=== PATIENT | female | born 1935 | race Caucasian/White ===

== ENCOUNTER → 2017-06-04 06:38 | Day surgery (SDC) | payer MEDICARE ==
[~2017-06-04 06:38] MED LIST: Atropine SYRINGE* 0.1 MG/ML 10 ML SYRINGE (1 MG) ONE; Diltiazem CD CAP* 240 MG PO SCH; Heparin 2 UNITS/ML IVPREMIX* 2,000 ML IV ONE; Heparin(*) 1000 UNIT/ML 10 ML VIAL CATH LAB IV ONE; Iodixanol* (CONTRAST) 320 MG/ML 100 ML SDV ONE; Iohexol 350 (CONTRAST) 200 ML MDV IV ONE; LORazepam TAB(*) 1 MG ONE; Lidocaine 1% INJ* 10 MG/ML 30 ML SDV ONE; Midazolam* 1 MG/ML 5 ML VIAL (5 MG) ONE; NS 0.9% 1000 ML* 1,000 ML IV SCH; Ondansetron INJ* 2 MG/ML VIAL ONE; fentaNYL* 50 MCG/ML 2 ML VIAL (100 MCG VIAL) ONE; hydrALAZINE IV* 20 MG/ML VIAL IV SLOW PU ONE; hydrALAZINE IV* 20 MG/ML VIAL ONE; nitroGLYCERIN DRIP* 0 MCG/0 ML BTL ONE; nitroGLYCERIN DRIP* 25,000 MCG/250 ML BTL ONE
--- NOTE | 2017-06-04 12:46 | RAD ---
CPT II Codes: 6045F Procedure(s) performed: 1. Diagnostic left lower extremity arteriogram. 2. Revascularization of occluded left superficial femoral artery. 3. Atherectomy of left superficial femoral artery. 4. Balloon angioplasty of left superficial femoral artery. Date of service: 06/04/17 Indication for procedure: Left leg claudication pain. Comparison: CTA aortogram with runoff dated April 27, 2017 and KANE dated January 06, 2017 Contrast: 50 mL Visipaque 320 Fluoroscopy Time: 14.6 minutes Vessels Accessed: Percutaneous access was obtained with ultrasound guidance in the left common femoral artery in the antegrade direction towards the foot. Catheter arteriography, with the catheter tip located within the lumen of the following arteries, was performed at the left common femoral artery, left superficial femoral artery and left popliteal artery. Anesthesia: Conscious sedation with IV Fentanyl and Versed as well as local 1% lidocaine injected locally at the arteriotomy site. Conscious sedation time: Timeout: 0915 hours Case end: 1044 hours Total conscious sedation time: 1 hour and 29 minutes Additional medications: * 200 mcg IA nitroglycerin injected intermittently throughout the course of the procedure to alleviate arterial spasm. * IV heparin 7000 Units to achieve a goal ACT of 250-300. * The patient received 1 mg of p.o. Ativan prior to the onset of the procedure. PROCEDURE NOTE AND INTRAPROCEDURAL IMAGING FINDINGS: Immediately prior to the procedure the patient signed consent after thoroughly discussing all risks, benefits and alternative therapies. The patient was positioned on the fluoroscopy table in the supine position and the bilateral groins were shaved, prepped and the patient was draped in standard sterile fashion. The left ankle was prepped and draped as well for possible retrograde pedal access. Using fluoroscopic imaging the location of the left common femoral head was marked externally with a skin marker on the patient's groin. Utilizing sonographic guidance and palpation, the left common femoral artery was cannulated overlying the femoral head with an 21-gauge needle. An ultrasound image was saved. A microwire was slowly advanced into the superficial femoral artery under fluoroscopic imaging. With the wire securing percutaneous arterial access, the needle was removed and a 5-Nicaraguan sheath was advanced under fluoroscopic control into the common femoral artery antegrade into the proximal superficial femoral artery securing access. Despite having a prior CTA, arteriography of the left lower extremity was necessary to more precisely locate the occlusion and to guide revascularization endeavors. The microwire and inner stylette were removed for the purpose of contrast injection. An arteriogram was performed through the access sheath demonstrating adequate left common femoral arteriotomy close to but above the bifurcation of the superficial femoral artery and femoral profundus. Patency was demonstrated in the proximal femoral profundus and proximal half of the superficial femoral artery. A 0.035 inch Bentson wire was advanced to the mid-level left superficial femoral artery. Over the Bentson wire the 5-Nicaraguan sheath was exchanged for a 7-[place]icarag[place] SideArm access sheath under fluoroscopic control. Arteriography of the lower thigh and proximal lower leg was performed through the side arm of the access sheath demonstrating a focal occlusion in the distal left superficial femoral artery measuring just under 10 cm in length. The distal popliteal artery fills by reconstituted flow. Utilizing a 0.035 inch Terumo Glidewire and a 4-Nicaraguan curved catheter the occluded portion of the superficial femoral artery was revascularize with the wire. With the wire located in the popliteal artery the catheter was advanced until the tip was in the left popliteal artery. The wire was removed and arteriography was performed from the distal popliteal artery confirming true lumen access and demonstrating patency of the popliteal artery and tibioperoneal trunk including imaging of the proximal anterior tibial artery. Arteriography of the lower left leg and foot was obtained showing scattered foci of stenosis in the anterior tibial artery but in-line flow is seen into the dorsalis pedis artery causing retrograde filling of the pedal loop. The posterior tibial artery is essentially occluded with no significant reconstituted collateral filling. The peroneal artery is extremely diminutive. Attention was returned to the occluded left superficial femoral artery. A second arteriogram was acquired confirming long segment occlusion of the left distal superficial femoral artery, though it was somewhat improved after advancing a 4-Nicaraguan catheter. Through the catheter a 0.018" [place] microwire was advanced into the mid-level anterior tibial artery securing access across the occlusion. Over the wire fluoroscopically guided atherectomy was performed with a 2.4 mm [place] atherectomy system. Postatherectomy arteriogram through the side arm of the access sheath demonstrated further improved patency in the previously occluded SFA. The atherectomy system was removed and direct catheter the microwire was replaced with a 0.035 inch Bentson wire. Over the Bentson wire a 5 mm x 120 mm paclitaxel coated InPact balloon was advanced spanning the previously occluded length of superficial femoral artery as well as the upper half of the popliteal artery and balloon angioplasty was performed. Over the course of 3 minutes the balloon was inflated up to burst pressure yielding an approximate diameter of 5.3 mm. The balloon remained inflated for total of 3 minutes to ensure paclitaxel delivery to the endothelium. The same balloon was drawn back slightly and the mid-level superficial femoral artery was then angioplastied for 2 additional minutes to ensure adequate inflow into the revascularize distal superficial femoral artery. Through the side arm of the access sheath arteriography of the left common femoral artery demonstrated an appropriate puncture of the common femoral artery above the bifurcation and below the inferior epigastric artery. However, the left common femoral artery appeared a diminutive with the 7-Nicaraguan sheath filling greater than 50% the lumen diameter of the artery. Because of the small size of the access artery it was decided that a closure device could not be safely deployed. The 7-Nicaraguan sheath was secured to the skin and the patient left the angiography suite where the sheath in place to allow for ACT to trend downward for planned sheath removal in the holding area. The patient tolerated the procedure well and was transferred to angiography holding bay for standard post procedural observation. SUMMARY OF PROCEDURE, IMAGING FINDINGS AND INTERVENTIONS PERFORMED: 1. Diagnostic studies performed: * Arterial access was obtained at the left common femoral artery in the antegrade direction (i.e. towards the foot) with ultrasound guidance. A sonographic image was recorded. * Diagnostic catheter angiography (necessary to perform the appropriate interventions) was performed with the catheter tip in the left common femoral artery, left superficial femoral artery and left popliteal artery. * Catheter arteriography was performed of the entire left lower extremity from the distal left external iliac artery through to the pedal branches of the left foot. * At the conclusion of the procedure arteriography was performed through the side arm of the access sheath to image the distal left external iliac artery, left common femoral artery and proximal superficial femoral artery and femoral profundus. 2. Interpretation of diagnostic studies performed: * There was an approximately 10 cm length occlusion of the distal left superficial femoral artery extending to the junction with the left popliteal artery. * There is essentially single-vessel runoff provided by the left anterior tibial artery to the foot exhibiting multiple foci of stenosis but not ammon occlusion. * Arteriography performed for the purpose of deploying a percutaneous arterial closure device demonstrates adequately patent left external iliac artery, common femoral artery and proximal superficial femoral artery and femoral profundus. * The left common femoral artery was deemed too narrow for safe percutaneous closure device deployment and therefore the patient left the angiography suite with the 7-Nicaraguan sheath in place to allow for the ACT to trended downward prior to bedside sheath removal. 3. Surgical interventions performed: * Revascularization of the occluded left superficial femoral artery. * Atherectomy of the left superficial femoral artery with a 2.4 mm [place] atherectomy device. * Balloon angioplasty of the left superficial femoral and popliteal arteries with a 5 mm x 120 mm paclitaxel coated HoozOn InPact balloon. 4. Interpretation of interventions performed: * Final arteriography demonstrated widely patent] flow through the previously occluded left superficial femoral and popliteal arteries. * Intervention of the single vessel runoff left anterior tibial artery was deferred to avoid causing any complications in the infrapopliteal artery providing direct flow to the foot. Plan: 1. Aspirin 81 mg p.o. daily for life. 2. Plavix 75 mg p.o. daily x 6 months. 3. Clinical and imaging follow-up according to standard Interventional Radiology protocol.
--- NOTE | 2017-06-04 17:03 | PN ---
Progress Note - Progress Note Date of Service: 06/04/17 SOAP: Subjective: Recent emesis. Patient feels well now. No pain complaints. Denies chest pain. Denies SOB. Objective: Selected Entries 06/04/17 16:45 Pulse Rate 63 Heart Rate 74 Respiratory 21 Rate Blood Pressure 168/67 (mmHg) Blood Pressure 93 Mean O2 Sat by Pulse 98 Oximetry NAD, AAO x 3 RRR, S1/S2 CTAB Abdomen feels soft, nontender Left CF arteriotomy site is soft, nontender Small (~1 cm diameter) dark brown blood on dressing, otherwise dry 1+ left MANAGER PERIOPERATIVE and pop pulses 2+ left DPA Left foot feels warm Left lower leg and foot are neuromuscular grossly intact Assessment: 82 YOF status post revascularization, atherectomy and angioplasty of occluded distal left SFA from an ipsilateral left MANAGER PERIOPERATIVE access. MANAGER PERIOPERATIVE diameter was too small for safe percutaneous closure deployment. Sheath pulling delayed by hypertension. Sheath pulled at 1523 and direct manual pressure held x 30 minutes. Plan: 1. 6 hours bedrest, left leg straight until 2123 hours. 2. Left groin, pulse and vitals check per protocol. 3. Plavix 75 mg po daily x 6 months. 4. ASA 81 mg po daily for life. 5. Routine Interventional Radiology follow up will include RN follow up call 06/07/17 and one month KANE & clinic follow up.
[2017-06-04 21:11] VITALS: BP 152/65
== END | disposition home or self-care (01) ==
LOC: CHICATH 06:38
PROVIDERS: ATTEND Radiology Diagnostic Radiology
DX: I70.222 Atherosclerosis of native arteries of extremities with rest pain, left leg (principal); I77.1 Stricture of artery; Z95.1 Presence of aortocoronary bypass graft; Z95.5 Presence of coronary angioplasty implant and graft
CPT/HCPCS: 76937; 99156; 99157; A9270-GY; C1724; C1725; C1769; C1887; C1894; J0360; J0461; J1644; J2250; J2405; J3010

== ENCOUNTER 2018-09-08 09:26 | Observation (INO) | payer MEDICARE ==
[2018-09-08] MEDS ORDERED: Diltiazem XR EXTEND Releas(NF) 240 MG CAP PO ONE (10:22)
--- NOTE | 2018-09-08 10:36 | ED ---
Complex/Multi-Sys Presentation - HPI Summary HPI Summary: Pt is a 83 y/o F presenting to the ED with a chief complaint of headache and palpitations. Pt was noted with very high BP in the ED. Per Tatum RN and daughter in the ED, the pt reported chest pressure onset yesterday accompanied by a weird sensation in her L arm. Pt also complained of left jaw pain yesterday. She has a L eye droop that is baseline as per the pts daughter, but no other neurological deficits. Per Tatum ROGERS and daughter, pt denies sob or fever. She has a hx of CABG in 2014 with one stent following, and two MIs. Pts daughter Peyton is present with the patient. Per Peyton, the pt lives with her and has been confused intermittently for the last few years, much worse today. The pt called Peyton last night and told her she wasnt feeling great. The patient went to her doctor yesterday and during her physical stated that she had pressure in her chest, felt like she had gas, and pain in the L side of her head for the last few weeks.Pt refused an EKG in her doctor's office, per the daughter. The pt just informed her daughter today of the chest pain and her L arm aching. Daughter lives near her mother and checks on her daily. Per pt, she reports cough and headache on her L frontal head. She states all of her symptoms are intermittent. She denies fever, med changes, or hx of pneumonia , respiratory issues, or CVA. She also reports her cardiac bypass was done in [place], but her stent was done in [place]. Vital signs while in room: HR 59 bpm, BP 205/72. Second BP is 208/116. Home Medications-not taken by pt this am. Bottles brought in by pt for confirmation of meds. - History Of Current Complaint Chief Complaint: EDHypertension Time Seen by Provider: 09/08/18 10:06 Hx Obtained From: Patient, Family/[employer] - daughterPeyton Onset/Duration: Gradual Onset, Lasting Days, Still Present Timing: Constant, Days Severity Currently: Moderate Severity Initially: Moderate Location: Pain At: - L frontal head, intermittently left chest, left jaw, left arm Character: Pressure, Typical Headache Aggravating Factor(s): none Alleviating Factor(s): none Associated Signs And Symptoms: Positive: Confusion, Headache, Cough, Chest Pain , Other - L arm aching. Negative: Fever - Allergies/Home Medications Allergies/Adverse Reactions: Allergies Allergy/AdvReac Type Severity Reaction Status Date / Time Sgbddld-Tmo-Zbf Reductase Allergy Joint Pain Verified 09/08/18 09:33 Inhibitor Home Medications: Home Medications Aspirin EC TAB* [Ecotrin EC Low Dose 81 MG*] 81 mg PO DAILY 09/08/18 [History Confirmed 09/08/18] Cholecalciferol (Vitamin D3) [Vitamin D3] 2,000 unit PO DAILY 09/08/18 [History Confirmed 09/08/18] Ezetimibe TAB* [Zetia TAB*] 5 mg PO DAILY 09/08/18 [History Confirmed 09/08/18] Losartan TAB* [Cozaar TAB*] 100 mg PO DAILY 09/08/18 [History Confirmed 09/08/18 ] Multivit-Min/Folic Acid/Biotin [Women Multivit W-Biotin Gummy] 1 tab.chew PO DAILY 09/08/18 [History Confirmed 09/08/18] Nutraview 1 cap PO DAILY 09/08/18 [History Confirmed 09/08/18] Replenex 1 tab PO TID 09/08/18 [History Confirmed 09/08/18] Ubidecarenone/Vitamin E [Co Q-10 50 mg Softgel] 2 cap PO DAILY 09/08/18 [ History Confirmed 09/08/18] dilTIAZem HCl [Cartia Xt] 240 mg PO DAILY 09/08/18 [History Confirmed 09/08/18] metFORMIN* [Glucophage 500 MG TAB *] 500 mg PO DAILY 09/08/18 [History Confirmed 09/08/18] PMH/Surg Hx/FS Hx/Imm Hx Previously Healthy: No Endocrine/Hematology History: Reports: Hx Diabetes Cardiovascular History: Reports: Hx Coronary Artery Disease, Hx Hypertension, Hx Myocardial Infarction - PA x 2, CABG and one stent placed after CABG, Other Cardiovascular Problems/Disorders - CABG in 2014 History: Reports: Hx Renal Disease - abnormal gfr Denies: Hx Dialysis Sensory History: Reports: Hx Contacts or Glasses Opthamlomology History: Reports: Hx Contacts or Glasses - Cancer History Hx Chemotherapy: No Hx Radiation Therapy: No - Surgical History Surgery Procedure, Year, and Place: CABG. . appendectomy. tubal ligation - Immunization History Date of Tetanus Vaccine: unknown Infectious Disease History: No Infectious Disease History: Denies: Traveled Outside the [place] in Last 30 Days - Family History Known Family History: Positive: Cardiac Disease, Hypertension - Social History Lives: With Family - Alcohol Use: None Hx Substance Use: No Substance Use Type: Reports: None Hx Tobacco Use: No Smoking Status (MU): Never Smoked Tobacco Have You Smoked in the Last Year: No Review of Systems Constitutional: Negative Positive: Other - jaw pain Positive: Chest Pain Positive: Cough Gastrointestinal: Negative Positive: no symptoms reported Positive: Other - L arm "weird sensation", aching Skin: Negative Positive: Headache Psychological: Normal All Other Systems Reviewed And Are Negative: Yes Physical Exam - Summary Physical Exam Summary: Appearance: Ill-appearing, moderate pain distress, well-nourished, hypertensive Skin: Warm, color reflects adequate perfusion, dry Head: Normal Head/Face inspection, atraumatic Eyes: Conjunctiva clear, PERRL EOMI, no nystagmus ENT: Normal inspection, jaw not painful to touch, not red or hot Neck: Supple, no nodes, no JVD Respiratory: Lungs clear, normal breath sounds, no respiratory distress Cardio: RRR, No murmur, pulses normal, brisk capillary refill Abdomen: Soft, nontender Bowel sounds: Present Musculoskeletal: Strength Intact/ROM intact, no calf tenderness, no edema. L arm not painful on palpation, full ROM, sensation intact, no deformity, distal pulses intact Psychological: Normal Neuro: Alert, indicated headache top of left side of head, muscle tone normal, no focal deficit GCS: 15 Triage Information Reviewed: Yes Vital Signs On Initial Exam: Initial Vitals Temp Pulse Resp BP Pulse Ox 97.7 F 56 19 206/84 96 09/08/18 09:29 09/08/18 09:29 09/08/18 09:29 09/08/18 09:29 09/08/18 09:29 Vital Signs Reviewed: Yes - [place] Coma Scale Best Eye Response: 4 - Spontaneous Best Motor Response: 6 - Obeys Commands Best Verbal Response: 5 - Oriented Coma Scale Total: 15 Diagnostics - Vital Signs Vital Signs Temp Pulse Resp BP Pulse Ox 09/08/18 09:50 53 12 205/72 99 09/08/18 09:48 22 09/08/18 09:29 97.7 F 56 19 206/84 96 - Laboratory Result Diagrams: 09/09/18 05:41 09/09/18 05:41 Lab Statement: Any lab studies that have been ordered have been reviewed, and results considered in the medical decision making process. - Radiology Chest x-ray Radiology Interpretation Completed By: Radiologist Summary of Radiographic Findings: 1. Mild subsegmental atelectasis at the LEFT lower lung zone. 2. No evidence for pulmonary edema. ED physician has reviewed this report. - CT Brain CT CT Interpretation Completed By: Radiologist Summary of CT Findings: 1. NO EVIDENCE FOR ACUTE INTRACRANIAL ABNORMALITY. 2. FINDINGS SUGGESTIVE OF A SMALL OLD INFARCT IN THE LEFT PARIETAL LOBE. ED physician has reviewed this report. - EKG 1022 Cardiac Rate: Bradycardia - 51bpm EKG Rhythm: Sinus Bradycardia ST Segment: Non-Specific Ectopy: None EKG Comparison: No Significant Change - from 06/18/15 Summary of EKG Findings: An EKG at 1022 reveals sinus bradycardia 51bpm, nml AV/ IV CT, nml QTc, and nml axis. No acute changes. 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 Re-Evaluation - Re-Evaluation 1st re-eval Re-Evaluation Time: 11:22 Change: Improved Comment: The pt has improved. She denies cp, GARCIA, arm pain, and jaw pain. BP is still 222/96. Was given her usual morning anti-hypertensives orally. Second Eval Re-Evaluation Time: 13:15 Change: Unchanged Comment: The pt's blood pressure is still 209/73 after hydralazine 10mg IV, Will give additional 10mg IV hydralazine. Pt still with GARCIA, no CP. Complex Multi-Symp Course/Dx Course Of Treatment: Pt is a 83 y/o F presenting to the ED with a chief complaint of headache,chest pain, palpitations, left arm pain, left jawpain, noted with very high BP at triage. Pts daughter Peyton is present with the patient. Per Peyton, the pt lives with her and has been confused intermittently for the last few years, much worse today. Per pt, she reports cough and headache on her L frontal head. She states all of her symptoms are intermittent. She denies fever, med changes, or hx of pneumonia, respiratory issues, or CVA. Pt is S/p PA x 2, CABG and one stent. Vital signs while in room : HR 59 bpm, BP 205/72. Second BP is 208/116. Brain CT shows 1. NO EVIDENCE FOR ACUTE INTRACRANIAL ABNORMALITY. 2. FINDINGS SUGGESTIVE OF A SMALL OLD INFARCT IN THE LEFT PARIETAL LOBE. CXR shows 1. Mild subsegmental atelectasis at the LEFT lower lung zone. 2. No evidence for pulmonary edema. An EKG at 1022 reveals sinus bradycardia at 51bpm. There is an old anteroseptal infarct with poor R wave progression V1-V3. No acute changes. No significant change from . The pt is negative for Influenza A & B. Pt was given her usual morning BP meds diltiazem XR 240mg and Losartan 100mg. This did not decrease her BP. Pt' s BP is 209/73 after hydralazine 10mg IV. Additional 10mg hydralazine IV given. Spoke with Dr. Salgado who will be the [place] [facility] Pt and daughter agree with admission. VS, medications and nurses' notes reviewed. - Diagnoses Differential Diagnoses/HQI/PQRI: Cardiac Ischemia, CVA, Metabolic Abnormality Provider Diagnoses: Hypertensive urgency, Atelectasis of left lung, Chest pain - Critical Care Time Critical Care Time: 30-74 min Discharge - Sign-Out/Discharge Documenting (check all that apply): Patient Departure - admit - Discharge Plan Condition: Good Disposition: ADMITTED TO [facility] - Billing Disposition and Condition Condition: GOOD Disposition: Admitted to [facility] - Attestation Statements Document Initiated by Scribe: Yes Documenting Scribe: Amelie Monique Provider For Whom Katherine is Documenting (Include Credential): Dr. Priyanka Perez MD. Scribe Attestation: Amelie Lea, scribed for Dr. Priyanka Perez MD. on 09/10/18 at 0117. Scribe Documentation Reviewed: Yes Provider Attestation: The documentation as recorded by the Amelie jerome accurately reflects the service I personally performed and the decisions made by me, Dr. Priyanka Perez MD. Status of Scribe Document: Viewed Consult Consult: [id number] - Spoke with Dr. Salgado about the pt's present condition who who will be the accepting physician to [facility]
[2018-09-08 10:38] LABS: Hematocrit 44 % (35-47); Hemoglobin 14.8 g/dl (12.0-16.0); Mean Corpuscular HGB Conc 34 g/dl (31-36); Mean Corpuscular Hemoglobin 33 pg (27-31); Mean Corpuscular Volume 98 fL (80-97); Mean Platelet Volume 9.3 fL (7.4-10.4); Platelet Count 213 10^3/ul (150-450); Red Blood Count 4.44 10^6/ul (4.00-5.40); Red Cell Distribution Width 13 % (10.5-15); White Blood Count 8.4 10^3/ul (3.5-10.8)
[2018-09-08 10:59] LABS: Activated Partial Thrombo Time 28.9 seconds (26.0-36.3); INR 0.9 (0.77-1.02)
[2018-09-08 11:00] LABS: Albumin 3.9 g/dL (3.2-5.2); Albumin/Globulin Ratio 1.2 (1-3); BUN/Creatinine Ratio 17.4 (8-20); Calcium 8.9 mg/dL (8.6-10.3); EGFR African American 70.7 (>60); EGFR Non-African American 58.4 (>60); Globulin 3.3 g/dL (2-4); Potassium 3.9 mmol/L (3.5-5.0); Total Bilirubin 0.4 mg/dL (0.2-1.0); Total Protein 7.2 g/dL (6.4-8.9)
[2018-09-08 11:01] LABS: CKMB ng/mL 1.5 ng/mL (0.6-6.3)
[2018-09-08 11:04] LABS: HCG Pregnancy 2.38 mIU/mL
[2018-09-08] MEDS ORDERED: Losartan TAB* 25 MG PO ONE (11:26)
[2018-09-08 11:35] LABS: T4, Total 7.48 mcg/dL (6.09-12.23)
[2018-09-08 11:41] LABS: TSH (Thyroid Stimulating Horm) 0.83 mcIU/mL (0.34-5.60)
[2018-09-08] MEDS ORDERED: Diltiazem CD CAP* 240 MG PO ONE (12:00)
[2018-09-08 12:12] LABS: ABS Basophils 0.1 10^3/ul (0-0.2); ABS Eosinophils 0.4 10^3/ul (0-0.6); ABS Lymphocytes 2.6 10^3/ul (1.0-4.8); ABS Monocytes 0.7 10^3/ul (0-0.8); ABS Neutrophils 4.6 10^3/ul (1.5-7.7); ABS Nucleated RBC 0 10^3/ul; Eosinophil % 5.3 %; Lymphocyte % 30.5 %; Nucleated Red Blood Cells % 0
[2018-09-08] MEDS ORDERED: hydrALAZINE IV* 20 MG/ML VIAL IV SLOW PU ONE ×2 (12:18→13:34)
[2018-09-08 12:34] LABS: Influenza A Molecular NEGATIVE (Negative); Influenza B Molecular NEGATIVE (Negative)
[2018-09-08 12:55] LABS: Urine Appearance Clear; Urine Bacteria 1+ (Absent); Urine Bilirubin Negative (Negative); Urine Blood Negative (Negative); Urine Color Colorless; Urine Glucose Negative (Negative); Urine Ketones Negative (Negative); Urine Nitrite Negative (Negative); Urine Protein Negative (Negative); Urine Red Blood Cell Trace(0-2/hpf) (Absent); Urine Specific Gravity 1.002 (1.010-1.030); Urine Urobilinogen Negative (Negative); Urine White Blood Cell 3+(>20/hpf) (Absent)
[2018-09-08] MEDS ORDERED: hydrALAZINE IV* 20 MG/ML VIAL IV SLOW PU PRN (15:51)
[2018-09-08] MEDS ORDERED: Dextrose 50% Syringe 50 ML* 25 GM/50 ML SYRINGE IV PUSH PRN (15:58)
[2018-09-08] MEDS ORDERED: cefTRIAXone(*) 1 GM in NS 0.9% 50 ML* 50 ML IVPB ONE (16:10)
[2018-09-08] MEDS: Hydrochlorothiazide TAB* 25 MG PO SCH (16:17)
[2018-09-08] MEDS: Insulin LISPRO* 1 UNITS UNIT SUBCUT SCH ×2 (19:14→21:27)
--- NOTE | 2018-09-08 19:37 | HP ---
ADMITTING HISTORY AND PHYSICAL: DATE OF ADMISSION: 09/08/18 CHIEF COMPLAINT: Headache and palpitations. HISTORY OF PRESENT ILLNESS: The patient is an 83-year-old lady with a history of diabetes mellitus, CKD stage 3, and hypercholesterolemia, with CAD , status post CABG x1, who presented with the above chief complaint. She mentioned that this started yesterday, starting with some nondiscrete headache in the frontal area of her head with chest palpitations instead of discomfort or pain. She then mentioned that the chest palpitation was intermittent in nature and somewhat this radiated to her left arm this morning with now absence of chest pain, prompting her to be concerned and presented to ED for further evaluation. In the ED, she was found to be hypertensive with blood pressure of 206/84 on presentation. In the ED, she received 240 mg of diltiazem p.o. x1, hydralazine 10 mg IV x2, as well as losartan 100 mg p.o. x1. The patient mentions that she is compliant with her medications as well as does not put salt or extra salt in her meals. PAST MEDICAL AND SURGICAL HISTORY: Peripheral neuropathy; renal artery atherosclerosis; NIDDM; hypercholesterolemia; CKD, stage 3; CAD without angina, status post CABG x1 in [place], and renovascular hypertension; status post C- section x3; appendectomy. FAMILY HISTORY: Mother had CAD, passed in her 80s. Father had CAD, passed in his 90s. Daughter had CAD and CVA. 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 She is a full code, and daughter lives 2 miles from her parents. REVIEW OF SYSTEMS: Palpitations and headache as described above. Denies any history of dizziness, fever, chills, nausea, vomiting, shortness of breath, abdominal pain, diarrhea, constipation. She does complain of increased urinary frequency for 1 to 2 days. Denied any new skin lesions, throat pain. The rest of the 14-point review of systems is otherwise unremarkable. PHYSICAL EXAMINATION GENERAL APPEARANCE: The patient is awake, alert, and oriented x3, not in acute distress. VITAL SIGNS: The most recent vital signs of record with blood pressure of 186/ 65, 59 beats per minute heart rate, 12 per minute respiratory rate, saturating at 97% on room air. HEENT: Normocephalic, atraumatic. PERRLA. Extraocular muscles intact. Negative for icterus. Moist oral mucosa. Negative throat erythema. NECK: Soft, supple with no cervical lymphadenopathy, no JVD. CHEST: Clear to auscultation bilaterally. Good air entry. No wheezes, rales, or rhonchi. HEART: S1, S2 within normal limits. Regular rate and rhythm. No murmurs, rubs , or gallops. ABDOMEN: Soft, nondistended, nontender. Normoactive bowel sounds x4 quadrants. EXTREMITIES: No cyanosis, clubbing, or edema. PSYCHIATRIC: No active psychosis, depression, suicidal or homicidal ideation. SKIN: Warm to touch. DIAGNOSTIC STUDIES/LAB DATA: The most recent and pertinent laboratories drawn show CBC with normal WBC, H and H, and platelet count. INR and PTT were found to be normal. Sodium, potassium, BUN, and creatinine were all found to be normal. Lactic acid was normal. LFTs were normal. BNP of 537. Chest x-ray shows mild subsegmental atelectasis at the left lower lung zone. No evidence of pulmonary edema. ASSESSMENT AND PLAN: The patient is an 83-year-old lady with a history of diabetes; renal artery stenosis; coronary artery disease, status post CABG x1, being admitted for hypertensive urgency. 1. Hypertensive urgency. We will continue current antihypertensives and we will add HCTZ to her regimen and we will add p.r.n. hydralazine, not to be given at a MAP less than or equal to 87.26, and we will continue watchful waiting. We will also place the patient on low-sodium as well as consistent carbohydrate diet. 2. Urinary tract infection. We will place the patient on Rocephin for at least 3 days and we will continue watchful waiting. 3. Diabetes mellitus. We will hold off on oral diabetic medications and instead we will place the patient on insulin sliding scale. 4. Coronary artery disease, status post CABG. We will continue aspirin, atorvastatin, losartan, and metoprolol. 5. DVT prophylaxis: We will place the patient on heparin subcu q.12. 6. Disposition: For PT eval. [id number]/[facility] #: [id number] [facility]
[2018-09-08 20:24] LABS: ABS Basophils 0.1 10^3/ul (0-0.2); ABS Eosinophils 0.2 10^3/ul (0-0.6); ABS Lymphocytes 2.1 10^3/ul (1.0-4.8); ABS Monocytes 0.8 10^3/ul (0-0.8); ABS Neutrophils 8.8 10^3/ul (1.5-7.7); ABS Nucleated RBC 0 10^3/ul; Eosinophil % 1.9 %; Hematocrit 43 % (35-47); Hemoglobin 14.6 g/dl (12.0-16.0); Lymphocyte % 17.4 %; Mean Corpuscular HGB Conc 34 g/dl (31-36); Mean Corpuscular Hemoglobin 33 pg (27-31); Mean Corpuscular Volume 99 fL (80-97); Nucleated Red Blood Cells % 0.1; Platelet Count 217 10^3/ul (150-450); Red Blood Count 4.39 10^6/ul (4.00-5.40); Red Cell Distribution Width 13 % (10.5-15); White Blood Count 11.9 10^3/ul (3.5-10.8)
[2018-09-08 20:33] LABS: Activated Partial Thrombo Time 27.1 seconds (26.0-36.3); INR 0.93 (0.77-1.02)
[2018-09-08 20:39] LABS: EGFR African American 63.5 (>60); EGFR Non-African American 52.5 (>60)
[2018-09-08] MEDS: Heparin VIAL(*) 5000 UNITS/ML VIAL (FIVE THOUSAND) SUBCUT SCH (21:26)
[2018-09-08] MEDS: Metoprolol Tartrate TAB* 25 MG PO SCH (21:26)
[2018-09-09] MEDS ORDERED: Acetaminophen TAB* 325 MG PO PRN (05:50)
[2018-09-09 06:07] LABS: ABS Basophils 0.1 10^3/ul (0-0.2); ABS Eosinophils 0.2 10^3/ul (0-0.6); ABS Lymphocytes 3.7 10^3/ul (1.0-4.8); ABS Nucleated RBC 0 10^3/ul; Eosinophil % 2.4 %; Hematocrit 43 % (35-47); Hemoglobin 14.8 g/dl (12.0-16.0); Mean Corpuscular HGB Conc 34 g/dl (31-36); Mean Corpuscular Hemoglobin 33 pg (27-31); Mean Corpuscular Volume 98 fL (80-97); Mean Platelet Volume 9.6 fL (7.4-10.4); Nucleated Red Blood Cells % 0.1; Platelet Count 201 10^3/ul (150-450); Red Blood Count 4.43 10^6/ul (4.00-5.40); Red Cell Distribution Width 13 % (10.5-15)
[2018-09-09 06:24] LABS: Albumin 3.9 g/dL (3.2-5.2); Albumin/Globulin Ratio 1.2 (1-3); BUN/Creatinine Ratio 16.8 (8-20); EGFR African American 63.5 (>60); EGFR Non-African American 52.5 (>60); Globulin 3.3 g/dL (2-4); Magnesium 2.1 mg/dL (1.9-2.7); Phosphorus 3.7 mg/dL (2.5-5.0); Potassium 3.6 mmol/L (3.5-5.0); Total Bilirubin 0.6 mg/dL (0.2-1.0); Total Protein 7.2 g/dL (6.4-8.9)
[2018-09-09] MEDS: Insulin LISPRO* 1 UNITS UNIT SUBCUT SCH (08:33)
[2018-09-09 08:34] VITALS: BP 148/53
[2018-09-09] MEDS: Heparin VIAL(*) 5000 UNITS/ML VIAL (FIVE THOUSAND) SUBCUT SCH (08:43)
[2018-09-09] MEDS: Metoprolol Tartrate TAB* 25 MG PO SCH (08:43)
[2018-09-09] MEDS: Hydrochlorothiazide TAB* 25 MG PO SCH (08:43)
[2018-09-09] MEDS ORDERED: Diltiazem CD CAP* 240 MG PO SCH (09:00)
[2018-09-09] MEDS ORDERED: Aspirin EC TAB* 81 MG TAB.EC PO SCH (09:00)
[2018-09-09] MEDS ORDERED: Losartan TAB* 25 MG PO SCH (09:00)
--- NOTE | 2018-09-09 12:46 | DS ---
CC: Dr. Priyanka Perez; Dr. Manjeet Gabriel DISCHARGE SUMMARY: DATE OF ADMISSION: 09/08/18 DATE OF DISCHARGE: 09/09/18 DISCHARGE DIAGNOSES: 1. Hypertensive urgency, resolved. 2. Urinary tract infection, improved. 3. Diabetes, well controlled. 4. Coronary artery disease, status post coronary artery bypass graft, history of. CONDITION: Good. DISPOSITION: Home. DISCHARGE MEDICATIONS: As follows: 1. Tylenol 650 mg p.o. q.6 p.r.n. 2. Aspirin 81 mg p.o. daily. 3. Atorvastatin 20 mg p.o. every other day. 4. Diltiazem 240 mg p.o. daily. 5. HCTZ 25 mg p.o. daily. 6. Losartan 100 mg p.o. daily. 7. Metoprolol tartrate 25 mg p.o. t.i.d. 8. Cefpodoxime 200 mg p.o. q.12 for 1 more day, 2 tabs dispensed with 0 refills. 9. Cholecalciferol 2000 units p.o. daily. 10. Ezetimibe 5 mg p.o. daily. 11. Floranex tabs 2 tabs p.o. daily for 5 days. 12. Metformin 500 mg p.o. daily. 13. Multivitamins for women NutraView p.o. daily. 14. Replenex 1 tab p.o. t.i.d. 15. Coenzyme Q10 50 mg softgel tablets 2 caps p.o. daily. HISTORY OF PRESENT ILLNESS/HOSPITAL COURSE: The patient is an 83-year-old lady with a history of diabetes mellitus, CKD stage 3, and hypercholesterinemia with CAD, status post CABG x1, who presented to the emergency room on 09/08/18 with a chief complaint of headaches and palpitations. She mentioned that these symptoms started a few hours prior to admission and was initiated with some nondiscrete headache in the frontal area of her head with chest palpitations instead of discomfort or pain. She then mentioned that the chest palpitations were intermittent in nature and somewhat radiated to her left arm after a few minutes. This change concerned her and prompted her to present to the ED for further evaluation. In the ED, she was found to be hypertensive with blood pressure of 206/84 on presentation and she had been given 240 mg of diltiazem orally, hydralazine 10 mg IV x2, as well as losartan 100 mg p.o. x1. She also mentions that she did not take her morning medications prior to going to the ER and hence this was given to her in addition to IV hydralazine dose was given. She was then admitted for hypertensive urgency and with holding parameter for lowering her blood pressure to a MAP of less than or equal to 87. She was also started on a low- salt diet and HCTZ together with her previous blood pressure medications. Her blood pressure today is well controlled and she is no longer symptomatic and not complaining of any headache. She was also ruled out for acute coronary syndrome with troponins being negative x3 and she was also found to have increased urinary frequency in the setting of pyuria on UA and hence was treated for uncomplicated UTI. She has received 2 doses of Rocephin prior to her discharge and hence she needs 1 more day of antibiotic regimen with Vantin. The patient also had CT noncontrast of her head given she presented with headache with high blood pressure and it showed no acute intracranial abnormality. 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 She had been advised to follow up and recall her PCP within 3 days post discharge. She was advised to continue with the low-salt diet less than 2 g per day, heart healthy diet, and consistent carbohydrate diet. She was advised that if her symptoms resume or develop new ones or few unwell for any reason, to call her PCP first. If her PCP cannot entertain her due to scheduling issues alone, she was asked to call [facility] if the issue is considered nonemergent. She was advised to call my office regarding any questions, concerns or further clarifications regarding her discharge plans and her prescriptions and to take her medications as prescribed. REVIEW OF SYSTEMS: She denies any current headaches, dizziness, fevers, chills , nausea, vomiting, chest pain, shortness of breath, increased coughing or sputum production, abdominal pain, diarrhea, constipation, pain and/or increased frequency in urination, myalgias, arthralgias, throat pain, or new skin lesions. The rest of the 14 point review of systems are otherwise unremarkable. PHYSICAL EXAMINATION: Shows the most recent vitals signs of records with blood pressure of 148/53, saturating at 97% on room air, 63 beats per minute heart rate, respiratory rate of 16 per minute, temperature of 97.5 degrees Fahrenheit. General Appearance: The patient is awake, alert, and oriented x3, not in acute distress. HEENT: Normocephalic, atraumatic. PERRLA. Extraocular muscles intact. Negative for icterus. Moist oral mucosa. Negative throat erythema. Neck is soft, supple with no cervical lymphadenopathy. No JVD. Heart: S1, S2 within normal limits. Regular rate and rhythm. No murmurs, rubs , or gallops. Chest is clear to auscultation bilaterally. Good air entry. No wheezes, rales, or rhonchi. Abdomen is soft, nondistended, nontender. Normoactive bowel sounds x4 quadrants. Extremities: No cyanosis, clubbing, or edema. Psychiatric: No active psychosis, depression, suicidal or homicidal ideation. Skin is warm to touch. TIME SPENT: The total time spent evaluating the patient, reviewing pertinent data, and appropriate documentation is 45 minutes. [id number]/[facility] #: [id number] [facility]
[2018-09-09] MEDS ORDERED: cefTRIAXone(*) 1 GM in NS 0.9% 50 ML* 50 ML IVPB SCH (16:00)
[2018-09-10] MEDS ORDERED: Atorvastatin* 20 MG TAB PO SCH (09:00)
== END 2018-09-09 12:00 | disposition home or self-care (01) ==
LOC: ED 09:26 → INTOOBSV 15:45 → MEDTELE 15:45
PROVIDERS: ADMIT Student in an Organized Health Care Education/Training Program; ATTEND Student in an Organized Health Care Education/Training Program
DX: E11.9 Type 2 diabetes mellitus without complications (principal); I25.10 Atherosclerotic heart disease of native coronary artery without angina pectoris; I10 Essential (primary) hypertension; I25.2 Old myocardial infarction; Z95.5 Presence of coronary angioplasty implant and graft; R51 Headache; R41.0 Disorientation, unspecified; R05 Cough; R07.9 Chest pain, unspecified; Z79.82 Long term (current) use of aspirin; N18.3 Chronic kidney disease, stage 3 (moderate); E78.00 Pure hypercholesterolemia, unspecified
CPT/HCPCS: 36415; 70450; 71045; 80053; 81003; 81015; 82550; 82553; 82565; 83036; 83605; 83735; 83880; 84100; 84436; 84443; 84484; 84520; 84702; 85025; 85610; 85730; 87040; 87086; 93005; 99285; A9270-GY; G0378; J0360; J0696; J1644

== ENCOUNTER 2018-12-14 13:01 | Day surgery (SDC) | payer MEDICARE ==
[~2018-12-14 13:01] MED LIST changes: +Acetaminophen TAB* 325 MG PO PRN; -Atropine SYRINGE* 0.1 MG/ML 10 ML SYRINGE (1 MG) ONE; +Buffered Lidocaine 1% SYRIN* 1 ML/SYRINGE INTRADERM ONE; +Cyclopentolate 1% OPTH.SOL* 2 ML BTL ONE; -Diltiazem CD CAP* 240 MG PO SCH; -Heparin 2 UNITS/ML IVPREMIX* 2,000 ML IV ONE; -Heparin(*) 1000 UNIT/ML 10 ML VIAL CATH LAB IV ONE; -Iodixanol* (CONTRAST) 320 MG/ML 100 ML SDV ONE; -Iohexol 350 (CONTRAST) 200 ML MDV IV ONE; +Ketorolac 0.5% OPHTH (NF) 0.5 % 5 ML BTL ONE; -LORazepam TAB(*) 1 MG ONE; -Lidocaine 1% INJ* 10 MG/ML 30 ML SDV ONE; +Lidocaine 1%* 5 ML VIAL ONE; +Lidocaine 2% EPI 1:200000 MPF*10-20 ML VIAL ONE; -Midazolam* 1 MG/ML 5 ML VIAL (5 MG) ONE; -NS 0.9% 1000 ML* 1,000 ML IV SCH; +Neomycin/Polymy/Dex OPTH.SUSP* MAXITROL 0.1% 5 ML ONE; -Ondansetron INJ* 2 MG/ML VIAL ONE; +Phenylephrine OPHTH SOL 2.5%* 2 ML ONE; +Povidone Iodine 5% OPTH* 30 ML BTL ONE; +Proparacaine 0.5% OPHTH.SOL* 15 ML BTL ONE; +acetaZOLAMIDE TAB* 250 MG ONE; -fentaNYL* 50 MCG/ML 2 ML VIAL (100 MCG VIAL) ONE; -hydrALAZINE IV* 20 MG/ML VIAL IV SLOW PU ONE; -hydrALAZINE IV* 20 MG/ML VIAL ONE; -nitroGLYCERIN DRIP* 0 MCG/0 ML BTL ONE; -nitroGLYCERIN DRIP* 25,000 MCG/250 ML BTL ONE
[2018-12-14] MEDS ORDERED: Midazolam* 1 MG/ML 2 ML VIAL (2 MG) ONE (14:57)
--- NOTE | 2018-12-14 15:57 | OP ---
OPERATIVE NOTE: DATE OF OPERATION: 12/14/18 DATE OF : 37 SURGEON: Onur Ring M.D. PREOPERATIVE DIAGNOSIS: Cataract, right eye. POSTOPERATIVE DIAGNOSIS: Cataract, right eye. OPERATIVE PROCEDURE: Extracapsular cataract extraction with intraocular lens implant right eye. PROCEDURE: The patient was brought to the operating room after being given 1/2% Alcaine with epineph rine drops in the preoperative area. The eye was prepped and draped in the usual sterile fashion. S terile drape and eyelid speculum were placed. Again, topical 1/2% Alcaine with epinephrine was given . A paracentesis incision was made at the 9 o'clock position with the No.75 blade. Clear cornea inc ision 2.2 x 2.2-mm was created at the 12 o'clock position starting at the anterior limbus using the 2 .2-mm keratome. The anterior chamber was irrigated with 0.4 mL of 1% non-preservative intracameral l idocaine and filled with DisCoVisc. A capsulorrhexis was completed using the cystotome and the Utrat a forceps. Hydrodissection was performed with balanced salt solution. The lens nucleus was removed w ith the Phacoemulsification handpiece without incident. Cortex was removed with the irrigation-aspir ation handpiece. The capsular bag was re-inflated using DisCoVisc and an [id number] implant was inser monalisa with the shooter. The irrigation-aspiration handpiece was used to remove all residual DisCoVisc. The eye was refilled with balanced salt solution and the wound checked and found to be watertight. Topical Maxitrol drops were given. [id number]/[facility] #: [id number]
[2018-12-14 16:41] VITALS: BP 154/65
== END 2018-12-14 15:53 | disposition home or self-care (01) ==
LOC: OREAST 13:01
PROVIDERS: ATTEND Specialist
DX: H25.811 Combined forms of age-related cataract, right eye (principal); E11.9 Type 2 diabetes mellitus without complications; Z79.84 Long term (current) use of oral hypoglycemic drugs; E78.00 Pure hypercholesterolemia, unspecified; Z95.5 Presence of coronary angioplasty implant and graft; Z95.1 Presence of aortocoronary bypass graft; I25.10 Atherosclerotic heart disease of native coronary artery without angina pectoris; N18.3 Chronic kidney disease, stage 3 (moderate); I12.9 Hypertensive chronic kidney disease with stage 1 through stage 4 chronic kidney disease, or unspecified chronic kidney disease; M19.90 Unspecified osteoarthritis, unspecified site
CPT/HCPCS: A9270-GY; J2250; V2632

== ENCOUNTER 2018-12-21 12:29 | Day surgery (SDC) | payer MEDICARE ==
[~2018-12-21 12:29] MED LIST changes: -Lidocaine 1%* 5 ML VIAL ONE; +Lidocaine 1%** 5 ML VIAL ONE
[2018-12-21] MEDS ORDERED: Midazolam* 1 MG/ML 2 ML VIAL (2 MG) ONE (15:10)
--- NOTE | 2018-12-21 15:51 | OP ---
DATE OF OPERATION: 12/21/18 - [facility] DATE OF : 37 SURGEON: Onur Ring MD PREOPERATIVE DIAGNOSIS: Cataract, left eye. POSTOPERATIVE DIAGNOSIS: Cataract, left eye. OPERATIVE PROCEDURE: Extracapsular cataract extraction with intraocular lens implant, left eye. DESCRIPTION OF PROCEDURE: The patient was brought to the operating room after being given 0.5% Alcaine with epinephrine drops in the preoperative area. The eye was prepped and draped in the usual sterile fashion. Sterile drape and eyelid speculum were placed. Again, topical 1/2% Alcaine with epinephrine was given. A paracentesis incision was made at the 3 o'clock position with the No.75 blade. Clear cornea incision 2.2 x 2.2-mm was created at the 6 o'clock position starting at the anterior limbus using the 2.2-mm keratome. The anterior chamber was irrigated with 0.4 mL of 1% non-preservative intracameral lidocaine and filled with DisCoVisc. A capsulorrhexis was completed using the cystotome and the Utrata forceps. Hydrodissection was performed with balanced salt solution. The lens nucleus was removed with the Phacoemulsification handpiece without incident. Cortex was removed with the irrigation-aspiration handpiece. The capsular bag was re-inflated using DisCoVisc and an [id number] implant was inserted with the shooter. The irrigation-aspiration handpiece was used to remove all residual DisCoVisc. The eye was refilled with balanced salt solution and the wound checked and found to be watertight. Topical Maxitrol drops were given. [id number]/[facility] #: [id number] [facility]el
[2018-12-21 16:12] VITALS: BP 168/68
== END 2018-12-21 15:40 | disposition home or self-care (01) ==
LOC: OREAST 12:29
PROVIDERS: ATTEND Specialist
DX: H25.812 Combined forms of age-related cataract, left eye (principal); Z79.84 Long term (current) use of oral hypoglycemic drugs; E78.00 Pure hypercholesterolemia, unspecified; N18.3 Chronic kidney disease, stage 3 (moderate); I25.10 Atherosclerotic heart disease of native coronary artery without angina pectoris; Z95.1 Presence of aortocoronary bypass graft; E08.22 Diabetes mellitus due to underlying condition with diabetic chronic kidney disease; Z95.5 Presence of coronary angioplasty implant and graft; I12.9 Hypertensive chronic kidney disease with stage 1 through stage 4 chronic kidney disease, or unspecified chronic kidney disease
CPT/HCPCS: A9270-GY; J2250; V2632

== ENCOUNTER 2021-10-22 16:06 | Inpatient (IN) ==
[2021-10-22] MEDS ORDERED: Dextrose 50% Syringe 50 ml 25 GM/50 ML SYRINGE IV PUSH PRN (17:57)
[2021-10-22 19:02] LABS: ABS Basophils 0.1 10^3/ul (0-0.2); ABS Eosinophils 0.5 10^3/ul (0-0.6); ABS Lymphocytes 2.1 10^3/ul (1.0-4.8); ABS Monocytes 0.7 10^3/ul (0-0.8); ABS Neutrophils 5.1 10^3/ul (1.5-7.7); Eosinophil % 5.8 %; Hematocrit 39 % (35-47); Hemoglobin 13.2 g/dL (12.0-16.0); Lymphocyte % 24.7 %; Mean Corpuscular HGB Conc 34 g/dL (31-36); Mean Corpuscular Hemoglobin 34 pg (27-31); Mean Corpuscular Volume 98 fL (80-97); Mean Platelet Volume 8.4 fL (7.4-10.4); Nucleated Red Blood Cells % 0.1; Platelet Count 265 10^3/uL (150-450); Red Blood Count 3.92 10^6 /uL (3.70-4.87); Red Cell Distribution Width 14 % (10-15); White Blood Count 8.4 10^3/uL (3.5-10.8)
[2021-10-22 19:25] LABS: Albumin 3.9 g/dL (3.2-5.2); Albumin/Globulin Ratio 1.4 (1-3); Calcium 9.2 mg/dL (8.6-10.3); Globulin 2.8 g/dL (2-4); Potassium 4.2 mmol/L (3.5-5.0); Total Bilirubin 0.6 mg/dL (0.2-1.0); Total Protein 6.7 g/dL (6.4-8.9); eGFR CKD-EPI 67.1 (>60)
[2021-10-22 20:32] LABS: High Sensitivity Troponin 1 Hr 19 pg/mL (<15)
[2021-10-22] MEDS: Isosorbide Mononit ER 30mg TAB PO SCH (23:31)
[2021-10-22] MEDS: Aspirin EC 81 mg TAB.EC (enteric coated) PO SCH (23:32)
[2021-10-22] MEDS: Heparin 5000 UNITS/ML 1 mL VIAL SUBCUT SCH (23:32)
[2021-10-23] MEDS: Heparin 5000 UNITS/ML 1 mL VIAL SUBCUT SCH ×3 (05:47→23:54)
[2021-10-23 05:49] LABS: Calcium 8.7 mg/dL (8.6-10.3); eGFR CKD-EPI 75.5 (>60)
[2021-10-23] MEDS ORDERED: Midazolam 5 mg/5 ml VIAL 1 mg/ml 5 ml VIAL (5 mg) ONE (09:54)
[2021-10-23] MEDS ORDERED: Heparin 1,000 UNIT/ML 10 ml (10,000 UNITS) CATHLAB/DIALYSIS ONE (09:55)
[2021-10-23] MEDS ORDERED: nitroGLYCERIN DRIP 0 MCG/0 ML BTL ONE (09:55)
[2021-10-23] MEDS ORDERED: VERAPAMIL 2.5 MG/ML 2 ML VIAL ** 5 mg/2 ml ONE (09:55)
[2021-10-23] MEDS ORDERED: Iohexol 350 (CONTRAST) 200 ML MDV IV ONE ×2 (09:55→11:18)
[2021-10-23] MEDS ORDERED: Lidocaine 1% MPF 5 ML VIAL ONE (09:55)
[2021-10-23] MEDS ORDERED: niCARdipine 0.1MG/ML IVPREMIX 0 MG/0 ML BAG IV ONE (09:55)
[2021-10-23] MEDS ORDERED: Heparin 2 UNITS/ML 1000 mls 2,000 ML IV ONE (09:55)
[2021-10-23] MEDS ORDERED: fentaNYL 100 mcg/2 ml 50 MCG/ML VIAL ONE (09:55)
[2021-10-23] MEDS ORDERED: Heparin 2 UNITS/ML 1000 mls 1,000 ML IV ONE (10:52)
[2021-10-23 11:04] LABS: POC SO2 65 %
[2021-10-23 11:04] LABS: POC SO2 93 %
[2021-10-23] MEDS: Cholecalciferol (VIT D3) 1,000 unit TAB PO SCH (15:44)
[2021-10-23] MEDS ORDERED: Senna TAB 8.6 mg TAB PO PRN (19:46)
[2021-10-23] MEDS ORDERED: Magnesium Hydroxide LIQ 30 ML UDC PO PRN (19:47)
[2021-10-23] MEDS: Aspirin EC 81 mg TAB.EC (enteric coated) PO SCH (23:51)
[2021-10-23] MEDS: Isosorbide Mononit ER 30mg TAB PO SCH (23:52)
[2021-10-24] MEDS: Heparin 5000 UNITS/ML 1 mL VIAL SUBCUT SCH ×3 (06:24→20:52)
[2021-10-24 06:56] LABS: Rapid COVID-19 Molecular Detected (Undetected)
[2021-10-24 08:35] LABS: Calcium 8.8 mg/dL (8.6-10.3); Potassium 4.5 mmol/L (3.5-5.0)
[2021-10-24] MEDS: Cholecalciferol (VIT D3) 1,000 unit TAB PO SCH (10:13)
[2021-10-24] MEDS: Isosorbide Mononit ER 30mg TAB PO SCH (20:52)
[2021-10-24] MEDS: Aspirin EC 81 mg TAB.EC (enteric coated) PO SCH (20:52)
[2021-10-25] MEDS: Heparin 5000 UNITS/ML 1 mL VIAL SUBCUT SCH ×3 (04:42→20:27)
[2021-10-25 06:59] LABS: Hematocrit 37 % (35-47); Hemoglobin 12.5 g/dL (12.0-16.0); Mean Corpuscular HGB Conc 34 g/dL (31-36); Mean Corpuscular Hemoglobin 34 pg (27-31); Mean Corpuscular Volume 99 fL (80-97); Mean Platelet Volume 8.7 fL (7.4-10.4); Platelet Count 264 10^3/uL (150-450); Red Blood Count 3.71 10^6 /uL (3.70-4.87); Red Cell Distribution Width 14 % (10-15); White Blood Count 9.5 10^3/uL (3.5-10.8)
[2021-10-25 07:14] LABS: Calcium 8.6 mg/dL (8.6-10.3); Magnesium 2.2 mg/dL (1.9-2.7); Potassium 4.3 mmol/L (3.5-5.0); eGFR CKD-EPI 67.1 (>60)
[2021-10-25] MEDS: Cholecalciferol (VIT D3) 1,000 unit TAB PO SCH (08:29)
[2021-10-25] MEDS: Aspirin EC 81 mg TAB.EC (enteric coated) PO SCH (20:27)
[2021-10-25] MEDS: Isosorbide Mononit ER 30mg TAB PO SCH (20:27)
[2021-10-26] MEDS: Heparin 5000 UNITS/ML 1 mL VIAL SUBCUT SCH ×3 (05:07→22:06)
[2021-10-26] MEDS: Cholecalciferol (VIT D3) 1,000 unit TAB PO SCH (09:07)
[2021-10-26] MEDS: Isosorbide Mononit ER 30mg TAB PO SCH (21:18)
[2021-10-26] MEDS: Aspirin EC 81 mg TAB.EC (enteric coated) PO SCH (22:05)
[2021-10-27] MEDS: Heparin 5000 UNITS/ML 1 mL VIAL SUBCUT SCH ×3 (05:39→21:17)
[2021-10-27 07:10] LABS: Calcium 8.7 mg/dL (8.6-10.3); Magnesium 2.1 mg/dL (1.9-2.7); Potassium 4.3 mmol/L (3.5-5.0); eGFR CKD-EPI 52.1 (>60)
[2021-10-27] MEDS: Cholecalciferol (VIT D3) 1,000 unit TAB PO SCH (07:56)
[2021-10-27] MEDS: Aspirin EC 81 mg TAB.EC (enteric coated) PO SCH (21:17)
[2021-10-27] MEDS: Isosorbide Mononit ER 30mg TAB PO SCH (21:17)
[2021-10-28] MEDS: Heparin 5000 UNITS/ML 1 mL VIAL SUBCUT SCH ×3 (06:15→20:57)
[2021-10-28 07:11] LABS: Hematocrit 34 % (35-47); Hemoglobin 11.7 g/dL (12.0-16.0); Mean Corpuscular HGB Conc 35 g/dL (31-36); Mean Corpuscular Hemoglobin 34 pg (27-31); Mean Corpuscular Volume 98 fL (80-97); Mean Platelet Volume 8.5 fL (7.4-10.4); Platelet Count 277 10^3/uL (150-450); Red Blood Count 3.47 10^6 /uL (3.70-4.87); Red Cell Distribution Width 14 % (10-15); White Blood Count 9.3 10^3/uL (3.5-10.8)
[2021-10-28 07:38] LABS: Calcium 8.9 mg/dL (8.6-10.3); Potassium 4.2 mmol/L (3.5-5.0); eGFR CKD-EPI 66.2 (>60)
[2021-10-28] MEDS: Cholecalciferol (VIT D3) 1,000 unit TAB PO SCH (09:19)
[2021-10-28] MEDS: Isosorbide Mononit ER 30mg TAB PO SCH (20:55)
[2021-10-28] MEDS: Aspirin EC 81 mg TAB.EC (enteric coated) PO SCH (20:57)
[2021-10-29] MEDS: Isosorbide Mononit ER 30mg TAB PO SCH (01:55)
[2021-10-29 08:23] LABS: Hematocrit 35 % (35-47); Hemoglobin 11.8 g/dL (12.0-16.0); Mean Corpuscular HGB Conc 34 g/dL (31-36); Mean Corpuscular Hemoglobin 34 pg (27-31); Mean Corpuscular Volume 99 fL (80-97); Mean Platelet Volume 8.5 fL (7.4-10.4); Platelet Count 271 10^3/uL (150-450); Red Blood Count 3.49 10^6 /uL (3.70-4.87); Red Cell Distribution Width 14 % (10-15); White Blood Count 6.6 10^3/uL (3.5-10.8)
[2021-10-29] MEDS: Heparin 5000 UNITS/ML 1 mL VIAL SUBCUT SCH ×2 (08:26→14:01)
[2021-10-29 08:39] LABS: Calcium 9.2 mg/dL (8.6-10.3); Potassium 4.4 mmol/L (3.5-5.0)
[2021-10-29] MEDS: Cholecalciferol (VIT D3) 1,000 unit TAB PO SCH (08:47)
[2021-10-29 17:59] LABS: Ferritin 73.3 ng/mL (11-307)
[2021-10-29] MEDS: Aspirin EC 81 mg TAB.EC (enteric coated) PO SCH (21:50)
[2021-10-30] MEDS: Enoxaparin 40 MG/0.4 ML SYR SUBCUT SCH ×2 (01:51→22:14)
[2021-10-30 06:11] LABS: Hematocrit 37 % (35-47); Hemoglobin 12.2 g/dL (12.0-16.0); Mean Corpuscular HGB Conc 33 g/dL (31-36); Mean Corpuscular Hemoglobin 34 pg (27-31); Mean Corpuscular Volume 102 fL (80-97); Mean Platelet Volume 8.3 fL (7.4-10.4); Platelet Count 273 10^3/uL (150-450); Red Blood Count 3.61 10^6 /uL (3.70-4.87); Red Cell Distribution Width 15 % (10-15); White Blood Count 7.6 10^3/uL (3.5-10.8)
[2021-10-30] MEDS: Cholecalciferol (VIT D3) 1,000 unit TAB PO SCH (08:44)
[2021-10-30] MEDS ORDERED: Cyanocobalamin INJ 1,000 MCG/ML VIAL 1 ML VIAL IM ONE (12:44)
[2021-10-30] MEDS: Aspirin EC 81 mg TAB.EC (enteric coated) PO SCH (22:08)
[2021-10-30] MEDS: Isosorbide Mononit ER 30mg TAB PO SCH (22:08)
[2021-10-31 07:12] LABS: Albumin 3.3 g/dL (3.2-5.2); Albumin/Globulin Ratio 1.3 (1-3); Calcium 8.7 mg/dL (8.6-10.3); Globulin 2.6 g/dL (2-4); Magnesium 2.2 mg/dL (1.9-2.7); Potassium 4.4 mmol/L (3.5-5.0); Total Bilirubin 0.6 mg/dL (0.2-1.0); Total Protein 5.9 g/dL (6.4-8.9); eGFR CKD-EPI 50.9 (>60)
[2021-10-31] MEDS: Cholecalciferol (VIT D3) 1,000 unit TAB PO SCH (09:18)
[2021-10-31] MEDS: Enoxaparin 40 MG/0.4 ML SYR SUBCUT SCH (20:31)
[2021-10-31] MEDS: Aspirin EC 81 mg TAB.EC (enteric coated) PO SCH (20:32)
[2021-10-31] MEDS: Isosorbide Mononit ER 30mg TAB PO SCH (20:32)
[2021-11-01] MEDS: Cholecalciferol (VIT D3) 1,000 unit TAB PO SCH (08:47)
[2021-11-01 17:33] VITALS: BP 157/57
== END 2021-11-01 18:45 | disposition short-term general hospital (02) | DRG 280 ==
LOC: MEDTELE → SUATTDRO 16:26
PROVIDERS: ADMIT Hospitalist; ATTEND Internal Medicine

== ENCOUNTER 2024-07-10 08:45 | Inpatient (IN) ==
[2024-07-10 10:01] LABS: Hematocrit 40.4 % (35-45); Hemoglobin 13.5 g/dL (11.5-14.3); Mean Corpuscular Hemoglobin 33.3 pg (27-33); Mean Corpuscular Hgb Conc 33.5 g/dL (31-36); Mean Corpuscular Volume 99.2 fL (80-97); Mean Platelet Volume 9.6 fL (7.5-11.2); Platelet Count 240 10^3/uL (150-450); Red Blood Count 4.07 10^6/uL (3.63-4.92); Red Cell Distribution Width 14.5 % (12-17); White Blood Count 14.3 10^3/uL (3.8-11.8)
[2024-07-10 10:24] LABS: High Sens Troponin Baseline 32 pg/mL (<15)
[2024-07-10] MEDS: Acetaminophen IV 1 GM/100ML 1,000 MG/100 ML BAG IV ONE (11:09)
[2024-07-10 11:20] LABS: High Sensitivity Troponin 1 Hr 42 pg/mL (<15)
[2024-07-10 11:30] LABS: ALT 22 U/L (7-52); Albumin 4.2 g/dL (3.5-5.7); Albumin/Globulin Ratio 1.2 (1-3); Alkaline Phosphatase 86 U/L (35-149); Anion Gap 5 mmol/L (2-16); Blood Urea Nitrogen 47 mg/dL (6-24); CO2 Carbon Dioxide 32 mmol/L (22-32); Calcium 9.7 mg/dL (8.6-10.3); Chloride 99 mmol/L (101-111); Creatinine, Serum 1.45 mg/dL (0.51-0.95); Globulin 3.4 g/dL (2-4); Glucose 220 mg/dL (70-100); Sodium 136 mmol/L (135-145); Total Protein 7.6 g/dL (6.4-8.9); eGFR CKD-EPI 34.7 (>60)
[2024-07-10 11:34] LABS: ABS Basophils 0.2 10^3/uL (0.0-0.1); ABS Eosinophils 0.1 10^3/uL (0.0-0.5); ABS Lymphocytes 0.6 10^3/uL (1.0-4.8); ABS Monocytes 0.5 10^3/uL (0.0-0.9); ABS Neutrophils 12.9 10^3/uL (1.5-7.6); ABS Nucleated RBC 0.01 10^3/ul; Eosinophil % 0.5 %; Large Platelets Present; Lymphocyte % 4.1 %
[2024-07-10 13:14] LABS: AST Redraw 28 U/L (13-39); Magnesium 2.4 mg/dL (1.9-2.7); Potassium Redraw 4.4 mmol/L (3.5-5.0)
[2024-07-10 16:00] LABS: High Sensitivity Troponin 3 Hr 52 pg/mL (<15)
[2024-07-10] MEDS ORDERED: Senna TAB 8.6 mg TAB PO PRN (22:57)
[2024-07-10] MEDS ORDERED: Dextrose 50% Syringe 50 ml 25 GM/50 ML SYRINGE IV PUSH PRN (23:04)
[2024-07-11] MEDS ORDERED: Dextrose 50% Syringe 50 ml 25 GM/50 ML SYRINGE IV PUSH PRN (00:49)
[2024-07-11 01:06] LABS: High Sensitivity Troponin 1 Hr 68 pg/mL (<15)
[2024-07-11] MEDS: NS 0.9% 500 ml BAG 500 ML IV ONE (01:24)
[2024-07-11 02:03] LABS: Folate > 20.00 ng/mL (5.90-24.80)
[2024-07-11 02:04] LABS: Vitamin B12 562 pg/mL (180-914)
[2024-07-11] MEDS: cefTRIAXone 1 gm/50 mL D5W 1 GM/50 ML BAG IV SCH ×2 (02:59→08:57)
[2024-07-11] MEDS: Sulfur Hexaflouride MICROSPHR 25 MG VIAL IV PRN (08:57)
[2024-07-11] MEDS: Cholecalciferol (VIT D3) 1,000 unit TAB PO SCH (08:58)
[2024-07-11] MEDS ORDERED: Sulfur Hexaflouride MICROSPHR 25 MG VIAL IV PRN (09:56)
[2024-07-11 10:55] LABS: Urine Appearance Clear; Urine Bilirubin Negative (Negative); Urine Blood Negative (Negative); Urine Color Yellow; Urine Glucose 4+ (>=1000 mg/dL) (Negative); Urine Ketones Negative (Negative); Urine Nitrite Negative (Negative); Urine Protein Negative (Negative); Urine Urobilinogen Negative (Negative)
[2024-07-11 13:01] LABS: Calcium 8.5 mg/dL (8.6-10.3); Creatinine, Serum 1.31 mg/dL (0.51-0.95); Potassium 3.7 mmol/L (3.5-5.0); eGFR CKD-EPI 39.2 (>60)
[2024-07-11] MEDS: Iodixanol 320 (CONTRAST) 100 ML SDV IV ONE (16:39)
[2024-07-12 10:01] LABS: Hematocrit 33.7 % (35-45); Hemoglobin 11.3 g/dL (11.5-14.3); Mean Corpuscular Hemoglobin 33.6 pg (27-33); Mean Corpuscular Hgb Conc 33.4 g/dL (31-36); Mean Corpuscular Volume 100.6 fL (80-97); Red Blood Count 3.35 10^6/uL (3.63-4.92); Red Cell Distribution Width 14.7 % (12-17); White Blood Count 9.6 10^3/uL (3.8-11.8)
[2024-07-12 10:06] LABS: Albumin 3.3 g/dL (3.5-5.7); Albumin/Globulin Ratio 1.1 (1-3); Creatinine, Serum 1.59 mg/dL (0.51-0.95); Globulin 2.9 g/dL (2-4); Magnesium 2.1 mg/dL (1.9-2.7); Potassium 3.8 mmol/L (3.5-5.0); Total Bilirubin 0.7 mg/dL (0.2-1.0); Total Protein 6.2 g/dL (6.4-8.9); eGFR CKD-EPI 31.1 (>60)
[2024-07-12 10:30] LABS: ABS Basophils 0.1 10^3/uL (0.0-0.1); ABS Eosinophils 0.2 10^3/uL (0.0-0.5); ABS Lymphocytes 1.4 10^3/uL (1.0-4.8); ABS Neutrophils 6.9 10^3/uL (1.5-7.6); ABS Nucleated RBC 0.01 10^3/ul; Eosinophil % 2.1 %; Lymphocyte % 14.2 %; Mean Platelet Volume 9.6 fL (7.5-11.2); Nucleated Red Blood Cells % 0.1 %/100WBC (0.0-0.8); Platelet Count 205 10^3/uL (150-450)
[2024-07-13] MEDS: Metoprolol Tartrate 5 mg VIAL 5 ml VIAL (1 mg/ml) IV ONE ×2 (06:45→09:13)
[2024-07-13] MEDS: Ondansetron 4 mg VIAL 2 MG/ML 2 ml VIAL IV PRN (08:15)
[2024-07-13] MEDS: Ondansetron 4 mg VIAL 2 MG/ML 2 ml VIAL ONE (08:26)
[2024-07-13 09:06] LABS: Creatinine, Serum 1.24 mg/dL (0.51-0.95); Magnesium 2.1 mg/dL (1.9-2.7); Potassium 4.2 mmol/L (3.5-5.0); eGFR CKD-EPI 41.9 (>60)
[2024-07-13] MEDS ORDERED: Metoprolol Tartrate 5 mg VIAL 5 ml VIAL (1 mg/ml) IV PRN (09:31)
[2024-07-13 10:00] LABS: High Sensitivity Troponin 1 Hr 139 pg/mL (<15)
[2024-07-13] MEDS: Magnesium Sulfate 2 gm BAG 2 GM/50 ML BAG IVPB ONE (10:08)
[2024-07-13 21:00] LABS: High Sensitivity Troponin 3 Hr 108 pg/mL (<15)
[2024-07-14 09:38] VITALS: BP 99/79
== END 2024-07-14 13:37 | DRG 309 ==
LOC: ED 08:45 → EDHOLD 08:45 → MEDTELE 22:19 → SUATTDRO 07-12 11:24
PROVIDERS: ADMIT Internal Medicine; ATTEND Student in an Organized Health Care Education/Training Program